=== PATIENT | female | born 1970 | race Caucasian/White ===

== ENCOUNTER 2018-05-21 15:15 | Outpatient (CLI) | payer BC, SELFPAY ==
[2018-05-21 15:38] LABS: Absolute Basophil Count 0.02 k/cumm (0.0-0.2); Absolute Eosinophil Count 0.08 k/cumm (0.0-0.7); Absolute Lymphocyte Count 2.17 k/cumm (1.2-3.4); Absolute Monocyte Count 0.42 k/cumm (0.11-0.7); Absolute Neutrophil Count 2.99 k/cumm (1.2-6.7); Basophils % 0.4; Eosinophils % 1.4; HCT 44.5 % (36.0-46.0); HGB 15.3 g/dL (12.0-15.5); Lymphocytes % 38.2; Mean Corp. HGB Concentration 34.4 g/dL (32.0-36.0); Mean Corpuscular Hemoglobin 30.9 pg (27.0-33.0); Mean Corpuscular Volume 89.9 fL (80-95); Mean Platelet Volume 9.4 fL (8.0-11.0); Monocytes % 7.4; Neutrophils % 52.6; Platelet Count 253 x1000/uL (130-400); RBC 4.95 m/cumm (4.00-5.20); RBC Distribution Width 12.4 % (11.7-14.6); White Blood Cell Count 5.68 k/cumm (4.4-10.8)
[2018-05-21 16:31] LABS: ALT 36 U/L (12-78); AST 18 U/L (15-37); Alkaline Phosphatase 72 U/L (46-116); Anion Gap 8.6 mmol/L (3-11); BUN 12 mg/dL (7-18); Bilirubin, Total 0.3 mg/dL (0.2-1.0); CO2 30.4 mmol/L (21.0-32.0); CREATININE 0.85 mg/dL (0.55-1.02); Calcium 9.3 mg/dL (8.5-10.1); Chloride 101 mmol/L (98-107); Glucose 92 mg/dL (70-100); Lipase 306 U/L (73-393); Potassium 4.4 mmol/L (3.5-5.1); Sodium 140 mmol/L (136-145); Total Protein 7.6 g/dL (6.4-8.2)
== END 2018-05-21 15:35 ==
PROVIDERS: PCP Nurse Practitioner Family; Visit Provider Nurse Practitioner Family
DX: R10.9 Unspecified abdominal pain (principal)
CPT/HCPCS: 36415; 80053; 83690; 85025

== ENCOUNTER 2019-03-10 12:25 | Outpatient (REF) | payer BC, SELFPAY ==
[2019-03-10 12:41] LABS: Abs Immature Grans 0.01 k/cumm (0.0-0.09); Absolute Basophil Count 0.03 k/cumm (0.0-0.2); Absolute Eosinophil Count 0.11 k/cumm (0.0-0.7); Absolute Lymphocyte Count 1.87 k/cumm (1.2-3.4); Absolute Monocyte Count 0.38 k/cumm (0.11-0.7); Absolute Neutrophil Count 2.44 k/cumm (1.2-6.7); Basophils % 0.6; Eosinophils % 2.3; HCT 43.3 % (36.0-46.0); HGB 14.6 g/dL (12.0-15.5); Immature Grans % 0.2; Lymphocytes % 38.6; Mean Corp. HGB Concentration 33.7 g/dL (32.0-36.0); Mean Corpuscular Hemoglobin 30.4 pg (27.0-33.0); Mean Corpuscular Volume 90.2 fL (80-95); Mean Platelet Volume 9.5 fL (8.0-11.0); Monocytes % 7.9; Neutrophils % 50.4; Platelet Count 263 x1000/uL (130-400); RBC Distribution Width 12.7 % (11.7-14.6); White Blood Cell Count 4.84 k/cumm (4.4-10.8)
[2019-03-10 12:55] LABS: Mono Screening Negative (Negative)
== END 2019-03-10 12:45 ==
LOC: LBN 12:25
PROVIDERS: PCP Nurse Practitioner Family; Visit Provider Family Medicine
DX: J02.9 Acute pharyngitis, unspecified (principal); R53.83 Other fatigue
CPT/HCPCS: 85025; 86308; 87070

== ENCOUNTER 2020-02-05 04:34 | Outpatient (CLI) | payer BC, SELFPAY ==
--- NOTE | 2020-02-05 08:47 | DI.MAMMO_ITS ---
EXAM: MAMMO SCREENING CLINICAL HISTORY: screening,Z12.39 TECHNIQUE: Mammograms were interpreted according to the usual protocol including computer analysis w [email or web address] CAD system, tomosynthesis and C-view imaging. COMPARISON: FINDINGS: The breasts are heterogeneously dense. No dominant mass or clumped microcalcification is identified in either breast. There is a focal area of increased radiodensity in the central portion of the righ t breast, additional evaluation of this area with MLO spot compression view recommended to exclude a mass. No other significant findings. No prior studies available for comparison. IMPRESSION: Additional mammographic views of the right breast requested as described above, to include an MLO spo t compression view. Breast ultrasound may be indicated as well depending on the results of the addit ional mammographic views. BI-RADS Category 0 - Assessment Incomplete: Need additional imaging evaluation Breast Density - Category C - Heterogeneously dense
== END 2020-02-05 04:54 ==
PROVIDERS: PCP Nurse Practitioner Adult Health; Visit Provider Nurse Practitioner Adult Health
DX: Z12.31 Encounter for screening mammogram for malignant neoplasm of breast (principal)
CPT/HCPCS: 77063; 77067

== ENCOUNTER 2020-02-10 00:54 | Outpatient (CLI) | payer BC, SELFPAY ==
--- NOTE | 2020-02-10 | DI.MAMMO_ITS ---
EXAM: MG MAMMO SCREEN CALL BACK UNI CLINICAL HISTORY: F/U MAMMO, FOCAL INCREASED RADIODENSITY RT TECHNIQUE: Mammograms were interpreted according to the usual protocol including computer analysis w [employer] CAD system, tomosynthesis and C-view imaging. COMPARISON: FINDINGS: Additional mammographic views of the right breast and right breast ultrasound are interpreted in conj unction. These examinations were obtained to evaluate questionable area focal asymmetric density raegan tral portion right breast seen recent. Additional mammographic views fail to show a discrete mass. Breast ultrasound shows no evidence of mass or cyst. IMPRESSION: no specific evidence of malignancy at this time. Follow-up unilateral right breast mammogram recomm ended in 6 months. BI-RADS Category 3 - 6 month - Probably Benign Finding: Recommend follow-up mammography in 6 months Breast Density - Category C - Heterogeneously dense
== END 2020-02-10 01:14 ==
PROVIDERS: PCP Nurse Practitioner Adult Health; Visit Provider Nurse Practitioner Adult Health
DX: R92.8 Other abnormal and inconclusive findings on diagnostic imaging of breast (principal); R92.2 Inconclusive mammogram
CPT/HCPCS: 76642; 77063; 77067

== ENCOUNTER 2020-04-18 09:11 | Outpatient (CLI) | payer BC, SELFPAY ==
[2020-04-20 17:29] LABS: COVID-19 RT-PCR Result NEGATIVE (Negative)
== END 2020-04-18 09:31 ==
PROVIDERS: PCP Nurse Practitioner Adult Health; Visit Provider Nurse Practitioner Adult Health
DX: Z20.828 Contact with and (suspected) exposure to other viral communicable diseases (principal)
CPT/HCPCS: U0003

== ENCOUNTER 2020-09-19 02:24 | Outpatient (CLI) | payer BC, SELFPAY ==
--- NOTE | 2020-09-19 | DI.MAMMO_ITS ---
Exam(s) MG MAMMO DIAGNOSTIC UNI EXAM: MG MAMMO DIAGNOSTIC UNI CLINICAL HISTORY: DIAGNOSTIC, F/U ABNL MAMMO, 6 MONTH FOLLOW UP,R92.8. TECHNIQUE: Unilateral spot mammographic images were obtained with 3D Tomosynthesistechnique and util izing computer aided detection (CAD). COMPARISON: Prior baseline mammogram February 2020. Also reviewed ultrasound of the right breast per formed February 2020. FINDINGS: Fibroglandular tissue of the right breast is moderately dense, this decreasing the sensitivity mammog federico for finding in underlying lesions There are no ominous masses nor malignant-appearing microcalcification groups in the right breast. N o architectural distortion or skin thickening-traction. IMPRESSION: No radiographic evidence of malignancy in the right breast. Appropriate follow-up is to keep this patient yearly mammogram schedule, this implying the next [facility] mammogram would be in February 2021, with earlier imaging if a self detected breast changes noted .. The patient was informed of the findings and follow-up recommendations prior to leaving the [facility] today. BI-RADS Category 2 - Benign Findings Breast Density - Category C - Heterogeneously dense Breast density Category C or D implies that the patient has dense breast tissue. Dense breast tissue can make it harder to find cancer on a mammogram. Dense breast tissue is also associated with an incr eased risk of breast cancer. This information about the result of the mammogram report was provided to the patient to raise their awareness. Use this report when you speak with the patient about their risks for breast cancer, which includes their family history. At that time, you may recommend additional screening tests (Ultrasoun d or MRI) as these tests may add significant information. A negative radiographic report should not delay biopsy if a dominant or clinically suspicious mass is present. Up to ten percent of cancers are not identified on mammography. A negative report may reinforce clinical impression. Adenosis and dense breasts may obscure an underlying neoplasm. False positive reports average 6 to 10%. Patient will receive a letter notifying them of these results.
== END 2020-09-19 02:44 ==
PROVIDERS: PCP Nurse Practitioner Adult Health; Visit Provider Nurse Practitioner Adult Health
DX: Z12.31 Encounter for screening mammogram for malignant neoplasm of breast (principal); R92.8 Other abnormal and inconclusive findings on diagnostic imaging of breast; N64.59 Other signs and symptoms in breast
CPT/HCPCS: 77061; 77065; G0279

== ENCOUNTER 2021-09-19 02:03 | Outpatient (CLI) | payer BC, SELFPAY ==
[2021-09-19 08:52] LABS: Abs Immature Grans 0.02 10^3/uL (0.0-0.06); Absolute Basophil Count 0.02 10^3/uL (0.0-0.2); Absolute Eosinophil Count 0.16 10^3/uL (0.0-0.7); Absolute Lymphocyte Count 1.86 10^3/uL (1.2-3.4); Absolute Monocyte Count 0.32 10^3/uL (0.1-0.8); Basophils % 0.5; Eosinophils % 3.7; HCT 42.1 % (36.0-46.0); HGB 14.2 g/dL (11.2-15.7); Immature Grans % 0.5; MCHC 33.7 % (32.0-36.0); MCV 89 fL (80-95); MPV 9.2 fL (8.0-11.0); Monocytes % 7.4; Neutrophils % 44.9; Platelet Count 293 10^3/uL (130-400); RBC 4.73 10^6/uL (3.93-5.22); RDW 12.2 % (11.7-14.6); RDW-SD 40.3 fL; WBC 4.33 10^3/uL (4.4-10.8)
[2021-09-19 08:53] LABS: Absolute Neutrophil Count 1.94 10^3/uL (1.2-6.7)
[2021-09-19 10:01] LABS: ALT 42 U/L (14-59); AST 24 U/L (15-37); Albumin 3.9 g/dL (3.4-5.0); Alkaline Phosphatase 107 U/L (46-116); Anion Gap 9.6 mmol/L (3-11); BUN 10 mg/dL (7-18); Bilirubin, Total 0.3 mg/dL (0.2-1.0); CO2 27.4 mmol/L (21.0-32.0); CREATININE 0.9 mg/dL (0.55-1.02); Calcium 8.9 mg/dL (8.5-10.1); Calculated LDL 190 mg/dL (<100); Chloride 104 mmol/L (98-107); Cholesterol 284 mg/dL (<200); Folate 11.6 ng/mL (8.6-20.0); Glucose 100 mg/dL (74-106); HDL Cholesterol 57 mg/dL (40-60); Potassium 4.5 mmol/L (3.5-5.1); Sodium 141 mmol/L (136-145); TSH (W/Ref FT4) 1.06 uIU/mL (0.36-3.74); Total Protein 7.6 g/dL (6.4-8.2); Triglyceride 189 mg/dL (<150); Vitamin B12 269 pg/mL (193-986)
== END 2021-09-19 02:04 | disposition home or self-care (01) ==
LOC: LBO 02:03
PROVIDERS: PCP Nurse Practitioner Adult Health; Referring Provider Nurse Practitioner Adult Health; Visit Provider Nurse Practitioner Adult Health
DX: R00.2 Palpitations (principal); R63.5 Abnormal weight gain; F41.8 Other specified anxiety disorders; Z13.1 Encounter for screening for diabetes mellitus; Z13.220 Encounter for screening for lipoid disorders
CPT/HCPCS: 36415; 80053; 80061; 82607; 82746; 84443; 85025

== ENCOUNTER → 2021-10-30 02:27 | Outpatient (CLI) | payer BC, SELFPAY ==
--- NOTE | 2021-10-30 07:45 | DI.MAMMO_ITS ---
Exam(s) MAMMO SCREENING EXAM: MAMMO SCREENING CLINICAL HISTORY: screening,Z12.39. TECHNIQUE: Bilateral full field digital CC and MLO mammographic images were obtained with 3D tomosyn thesis and utilizing computer aided detection (CAD). COMPARISON: Prior mammograms were reviewed, the most recent being February 2020 and September 2020.. FINDINGS: Fibroglandular tissue pattern is again noted be moderately dense, this somewhat decreasing the sensit ivity mammogram for finding hidden underlying lesions. There are no new obvious spiculated masses nor malignant appearing microcalcification groups. There is no significant architectural distortion nor skin thickening-retraction. IMPRESSION: No radiographic evidence of malignancy. Moderately dense fibroglandular tissue BI-RADS Category 1 - Negative Breast Density - Category C - Heterogeneously dense Breast density Category C or D implies that the patient has dense breast tissue. Dense breast tissue can make it harder to find cancer on a mammogram. Dense breast tissue is also associated with an incr eased risk of breast cancer. This information about the result of the mammogram report was provided to the patient to raise their awareness. Use this report when you speak with the patient about their risks for breast cancer, which includes their family history. At that time, you may recommend additional screening tests (Ultrasoun d or MRI) as these tests may add significant information. A negative radiographic report should not delay biopsy if a dominant or clinically suspicious mass is present. Up to ten percent of cancers are not identified on mammography. A negative report may reinforce clinical impression. Adenosis and dense breasts may obscure an underlying neoplasm. False positive reports average 6 to 10%. Patient will receive a letter notifying them of these results.
== END ==
PROVIDERS: PCP Nurse Practitioner Adult Health; Visit Provider Nurse Practitioner Adult Health
DX: Z12.31 Encounter for screening mammogram for malignant neoplasm of breast (principal)
CPT/HCPCS: 77063; 77067

== ENCOUNTER 2021-12-21 04:18 | Outpatient (CLI) | payer BC, SELFPAY ==
--- NOTE | 2021-12-21 16:00 | NS.NUTBLAN_ITS ---
Larisa was referred for weight and lipid mangement education. 50 yo female 5'1 160 lbs BMI: 26. Has gained 40 lbs in last 7 years- attributes this to increase in stress and sedentary job. 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 Diet Recall: cereal with banana for B, Lunch: MacnCheese, D: kyrgyz food. Snacks: Crackers. Drinks 1 Pepsi daily Exercise: None Labs: 12/01/21: Chol: 284, LDL: 190, HDL: 57, Tri. Fasting BS: 100 mg/dl. Strong Fam hx of Dm2 Session today focused on how to follow a lower carb diet that focuses on lean protein, healthy fats, non starchy vegetables and complex carbs. Provided meal plans and web sites for reference. Encouraged tracking on food diary matteo such as [employer] or Carbs & Cals. Recommend walking 1 mile daily. Barriers for behavior change is work and school schedule. Has very little down time. Hoping for more time to herself later in year. Goal: 10% weight loss in next 90 days. 16 lbs weight loss most likely will improvie lipid and glycemic profile. No follow up scheduled at this time.
== END 2021-12-21 04:19 | disposition home or self-care (01) ==
LOC: DS 04:18
PROVIDERS: PCP Nurse Practitioner Adult Health; Visit Provider Dietitian, Registered
DX: E66.3 Overweight (principal); E78.5 Hyperlipidemia, unspecified; Z68.26 Body mass index [BMI] 26.0-26.9, adult; Z71.3 Dietary counseling and surveillance
CPT/HCPCS: 97802

== ENCOUNTER 2022-02-23 01:29 | Outpatient (CLI) | payer BC, SELFPAY ==
--- OUTSIDE RECORDS SUMMARY | 2022-02-23 01:36 | XMS_ITS | Encounter Summary ---
:1970 Author Organization [facility] [address] Care Team Providers Name Role Phone Hanny Coates APRN Primary Care Provider Reason for Referral Consultation (Routine) - Authorized Specialty Diagnoses / Procedures Referred By Contact Refer red To Contact Gastroenterology Diagnoses Family hx of colorectal cancer Hanny Coates APRN [facility]oscopy [address] [place], [place] [id number] [place] [id number] Referral ID Status Reason Start Expiration Visits Visits Date Date Requested Authorized [id number] Authorized Consult, 09/21/2021 09/21/2022 6 6 Test & Treat PCP Updated and/or Approved Encounter Details Date Type Department Care Team Description 09/21/2021 Transcribe Orders eDH Incoming Family Jaxon hx of Referrals RICKIE Gamino colorectal cancer [phone] [place], [place] [id number] Social History Tobacco Use Types Packs/Day Years Used Date Never Assessed Sex Assigned at Date Recorded Not on file documented as of this encounter Plan of Treatment Scheduled Referrals Name Type Priority Associated Order Schedule Diagnoses Referral to Outpatient Routine Family hx of Ordered: Gastroenterology Referral colorectal cancer 2021 documented as of this encounter Visit Diagnoses Diagnosis Family hx of colorectal cancer Family history of malignant neoplasm of gastrointestinal tract documented in this encounter Care Teams Utilization Specialist Relationship Specialty Start Date End Date Hanny Coates APRN PCP - General Geriatric Medicine 02/15/[address] [place] [address] [place] [address] documented as of this encounter
--- OUTSIDE RECORDS SUMMARY | 2022-02-23 01:36 | XMS_ITS | Encounter Summary ---
:1970 Author Organization [facility] [place] [address] Care Team Providers Name Role Phone Hanny Coates APRN Primary Care Provider Encounter Details Date Type Department Care Team Description 02/17/2020 External Results [place] [facility] [place], [place] [address] Social History Tobacco Use Types Packs/Day Years Used Date Never Assessed Sex Assigned at Date Recorded Not on file documented as of this encounter Plan of Treatment Not on filedocumented as of this encounter Procedures Procedure Name Priority Date/Time Associated Diagnosis Comme nts MAMMOGRAM SCAN Routine 08/11/2007 Results for t his procedure are in the resu lts section. documented in this encounter Results Scan Doc: Mammogram (08/11/2007) Anatomical Region Laterality Modality Other Narrative This result has an attachment that is no t available. Scanning Provider MEDIA MGR SCAN EXT ORDR/RSLT documented in this encounter Visit Diagnoses Not on filedocumented in this encounter Care Teams Fitter Mechanic Relationship Specialty Start Date End Date Hanny Coates APRN PCP - General Geriatric Medicine 02/15/20 [facility] [place] [address] documented as of this encounter
--- OUTSIDE RECORDS SUMMARY | 2022-02-23 01:36 | XMS_ITS | Encounter Summary ---
:1970 Author Organization [facility] [place] [address] Care Team Providers Name Role Phone Unknown Primary Care Provider Unavailable Encounter Details Date Type Department Care Team Description 02/10/2020 Ancillary Procedure Radiology Library at Kerrie Coates [facility] [place] NUCLEAR MEDICINE TECHNICIAN [facility] [address] [place] [phone] (Wo rk) Social History Tobacco Use Types Packs/Day Years Used Date Never Assessed Sex Assigned at Date Recorded Not on file documented as of this encounter Plan of Treatment Not on filedocumented as of this encounter Procedures Procedure Name Priority Date/Time Associated Diagnosis Comme nts FILM Routine 02/10/2020 12:00 AM Results for this LIBRARY-STORAGE EDT procedure ar e in ONLY US BREAST the results section. documented in this encounter Results Film Library Storage Only US Breast (02/10/2020 12:00 AM EDT) Specimen (Source) Anatomical Location Collection Method / Collectio n Time Received Time / Laterality Volume Narrative TORIN CODY - 02/17/2020 4:10 PM EDT This exam is auto-finalizing. It's purpo se is for storage only. Hanny Coates NUCLEAR MEDICINE TECHNICIAN IMG FILM LIBRARY ORDERABLES Performing Organization Address City/State/ZIP Code Phon e Number RAD [place], [place] documented in this encounter Visit Diagnoses Not on filedocumented in this encounter Care Teams Game Developer Relationship Specialty Start Date End Date Unknown PCP - General 02/13/17 02/14/20 None documented as of this encounter
--- OUTSIDE RECORDS SUMMARY | 2022-02-23 01:36 | XMS_ITS | Encounter Summary ---
:1970 Author Organization [facility] Address [address] [place] [address] Care Team Providers Name Role Phone Unavailable Primary Care Provider Unavailable Encounter Details Date Type Department Care Team Description 09/07/[address] [facility] [place] Unknown, Provider, [facility] [address] [facility] [phone] [place] [address] (Work) [phone] Social History Tobacco Use Types Packs/Day Years Used Date Never Assessed Sex Assigned at Date Recorded Not on file documented as of this encounter Discharge Disposition Disposition Code Departure Means Destination Home or Self [facility] documented in this encounter Plan of Treatment Not on filedocumented as of this encounter Visit Diagnoses Not on filedocumented in this encounter
--- OUTSIDE RECORDS SUMMARY | 2022-02-23 01:36 | XMS_ITS | Encounter Summary ---
:1970 Author Organization [facility] Address [address] [place] [address] Care Team Providers Name Role Phone Cheli Andrews APRN Primary Care Provider Encounter Details Date Type Department Care Team Description 05/17/2015 Hospital Encounter [facility] Unknown, Pro Blanca dexter MD [address] [facility] [phone] [place] [address] (Work) [phone] Social History Tobacco Use Types Packs/Day Years Used Date Never Assessed Sex Assigned at Date Recorded Not on file documented as of this encounter Discharge Disposition Disposition Code Departure Means Destination Home or Self Custodial documented in this encounter Plan of Treatment Not on filedocumented as of this encounter Visit Diagnoses Not on filedocumented in this encounter Care Teams Kai [place] Relationship Specialty Start Date End Date Cheli Andrews APRN PCP - General 09/28/14 11/01/15 [address] [address] documented as of this encounter
--- OUTSIDE RECORDS SUMMARY | 2022-02-23 01:36 | XMS_ITS | Encounter Summary ---
:1970 Author Organization [facility] Address [address] [place] [address] Care Team Providers Name Role Phone Ginny Palencia CORONER TECHNICIAN Primary Care Provider Encounter Details Date Type Department Care Team Description 04/18/2020 Lab Requisition [facility] Outr Resulting Lab, Pathology & Laboratory Provider [facility] [address] [place] [address] Social History Tobacco Use Types Packs/Day Years Used Date Never Assessed Sex Assigned at Date Recorded Not on file documented as of this encounter Plan of Treatment Not on filedocumented as of this encounter Procedures Procedure Name Priority Date/Time Associated Comments Diagnosis DO NOT ORDER Today 04/18/2020 12:53 Results for this STANDALONE - BROAD EST procedure are in COVID TEST the results section. COVID-19 TESTING Routine 04/18/2020 12:53 Results for this EST procedure are i n the results section. documented in this encounter Results DO NOT ORDER STANDALONE - BROAD COVID TEST (04/18/2020 12:53 EST) COVID-19 rt-PCR NEGATIVE Negative [facility] Result Comment: LABORATORY 2019-novel Coronavirus (2019 -nCoV) not detected by the qRT-PCR assay. Consider testing for other respiratory viruses or re-collecting for 2019-nCoV testing. Note: Optimum timing for peak viral levels du ring infections caused by 20 19-nCoV have not been determined. Collection of multiple specimens from the same patient may be necessary to detect the virus. Limitations Positive results are indicat sherwin of active infection with SARS-CoV-2 but do not rule out bacterial infection or co-infection with other viruses. The agent detected may not be the definite cause of diseas e. In addition, detection of viral RNA may not indicate the presence of infectious virus or that SARS-CoV-2 is the causative agent for clinical symptoms. Negative results do not prec lude SARS-CoV-2 infection and should not be used as the sole basis for patient management decisions. Negative results must be combined with clinical observations, patient his tory, and epidemiological in formation. False negative results may also occur if amplification inhibitors are present in the specimen or if inadequate numbers of organisms are present in the specimen. Op timum specimen types and georgie ing for peak viral levels during infections caused by SARS-CoV-2 have not been fully determined. Collection of multiple specimens (types and time points) from the same patient may be necessary to detect the virus. The test was validated for u se with upper respiratory specimens obtained via nasopharyngeal or oropharyngeal swabs in VTM, UTM, M4, M5, M6, saline, and MTM media. The performance of this test has not be en established for other spe cimens. Specimens collected using other FDA recommended Specimen Collection Materials listed in the FDA COVID-19 [employer] communication (July 30, 2019) are pr ocessed with the caveat that they were not all validated for use with this test and the result must be interpreted in this context. Furthermore, a false negative results may occur if a specimen is improperly collected, transported or handled. If the virus mutates in the RT-PCR target region, SARS-CoV-2 may not be detected or may be detected less predictably. Inhibitors or other types of interference may produce a false negative result. An interference study evaluating the effect of common cold medications was not performed. This test is not FDA-cleared but its performance characteristics were established by our CLIA-certified, CAP-accredited, high complexity laboratory in accordance with CLIA regulations, College of [employer] an [employer] (CAP) guidel devante (Jul 23, 2019), and FDA guidance (Jul 04, 2019). This test is only for use un gage the Food and Drug Administration's Emergency Use Authorization. Specimen Swab - Entire nasopharynx (body structur e) Performing Organization Address City/State/ZIP Code Phon e Number [facility] [place] [place] COVID-19 TESTING (04/18/2020 12:53 EST) COVID-19 rt-PCR NEGATIVE Negative [facility] Result Comment: LABORATORY 2019-novel Coronavirus (2019 -nCoV) not detected by the qRT-PCR assay. Consider testing for other respiratory viruses or re-collecting for 2019-nCoV testing. Note: Optimum timing for peak viral levels du ring infections caused by 20 -nCoV have not been determined. Collection of multiple specimens from the same patient may be necessary to detect the virus. Limitations Positive results are indicat sherwin of active infection with SARS-CoV-2 but do not rule out bacterial infection or co-infection with other viruses. The agent detected may not be the definite cause of diseas e. In addition, detection of viral RNA may not indicate the presence of infectious virus or that SARS-CoV-2 is the causative agent for clinical symptoms. Negative results do not prec lude SARS-CoV-2 infection and should not be used as the sole basis for patient management decisions. Negative results must be combined with clinical observations, patient his tory, and epidemiological in formation. False negative results may also occur if amplification inhibitors are present in the specimen or if inadequate numbers of organisms are present in the specimen. Op timum specimen types and georgie ing for peak viral levels during infections caused by SARS-CoV-2 have not been fully determined. Collection of multiple specimens (types and time points) from the same patient may be necessary to detect the virus. The test was validated for u with upper respiratory specimens obtained via nasopharyngeal or oropharyngeal swabs in VTM, UTM, M4, M5, M6, saline, and MTM media. The performance of this test has not be en established for other spe cimens. Specimens collected using other FDA recommended Specimen Collection Materials listed in the FDA COVID-19 [employer] communication (July 30, 2019) are pr ocessed with the caveat that they were not all validated for use with this test and the result must be interpreted in this context. Furthermore, a false negative results may occur if a specimen is improperly collected, transported or handled. If the virus mutates in the RT-PCR target region, SARS-CoV-2 may not be detected or may be detected less predictably. Inhibitors or other types of interference may produce a false negative result. An interference study evaluating the effect of common cold medications was not performed. This test is not FDA-cleared but its performance characteristics were established by our CLIA-certified, CAP-accredited, high complexity laboratory in accordance with CLIA regulations, [employer] of [employer] an [employer]ologists (CAP) guidel devante (Jul 23, 2019), and FDA guidance (Jul 04, 2019). This test is only for use un gage the Food and Drug Administration's Emergency Use Authorization. Performing Lab [facility] LABORATORY SERVICES Specimen Swab Performing Organization Address City/State/ZIP Code Phon e Number [facility] [address] [place] [address] SERVICES [facility] [place], [place] documented in this encounter Visit Diagnoses Not on filedocumented in this encounter Care Teams Orchard Worker Relationship Specialty Start Date End Date Ginny Palencia, MCKENNA PCP - General 11/02/15 [address] [place] [id number] documented as of this encounter
--- OUTSIDE RECORDS SUMMARY | 2022-02-23 01:36 | XMS_ITS | Encounter Summary ---
:1970 Author Organization [facility] [place] [address] Care Team Providers Name Role Phone Hanny Coates RICKIE Primary Care Provider Encounter Details Date Type Department Care Team Description 02/18/2020 Ancillary Procedure Radiology Library at Kerrie Coates zach, Breast density [id number] [place] [address] [place], [place] [id number] Social History Tobacco Use Types Packs/Day Years Used Date Never Assessed Sex Assigned at Date Recorded Not on file documented as of this encounter Plan of Treatment Not on filedocumented as of this encounter Procedures Procedure Name Priority Date/Time Associated Diagnosis Comme nts REQUEST FOR 2ND Routine 02/18/2020 8:35 AM Breast density Resu lts for this READ MAMMO EDT procedure are i n the results section. documented in this encounter Results Request for 2nd read Mammo (02/18/2020 8:35 AM EDT) Anatomical Region Laterality Modality SO Specimen (Source) Anatomical Location Collection Method / Collectio n Time Received Time / Laterality Volume Impressions 02/18/2020 9:08 AM EDT No evidence of malignancy. The previously noted right breast density is consistent with benign breast fibrogland ular tissue. BI-RADS Category 1: Negative RECOMMENDATION: Routine screening. Please note: The interpretation of the [facility] Breast Imaging Radiologist subspecialist may differ fro m the original radiologists interpretation. This is usually not due to a deficiency of the original interpreting radiologist, rather due to the greater skill level afforded by sub-specialization in the field and/or r easonable variations in interpretations. If you have a concern regarding the D- interpretation you may contact the [facility] Breast Crew Dispatcher Office at . * ??Regular screening mammograms startin g between age 40 and 50 reduces the risk of from breast cancer. * ??All screening tests have both risks and benefits. These risks and benefits should be assessed for each individual p atient through discussion with their provider to determine their preferred br east cancer screening schedule. * ??Women should report any breast ott es to a health care provider right away. * ??Some women, because of their family history, a genetic tendency, or other factors, should be screened with annual breast MRI as well as with mammograms. (The number of women who fall into this category is very small). Patients and health care providers should discuss the history of each patient to decide if earlier screening and/or breast MRI are appropriate. * ??Screening should continue as long as a woman is in good health and is expected to live 10 years or longer. * ??Screening mammography may not detect 10-15% of breast cancers. I have personally reviewed the image(s) and the resident's interpretation and agree with the findings, Yesika vega MD at 02/18/2020 9:08 AM Thank you for letting us participate in the care of this patient. For questions regarding this report, please contact e number below. ? Electronically signed by: Yesika ballesteros MD, [facility] ([phone]), at 02/18/2020 9:08 AM Narrative 02/18/2020 9:08 AM EDT INTERPRETATION OF OUTSIDE BREAST IMAGING I have been asked to consult on this pat ient by Hanny Coates APRN because he/she believes a review of this study m ay change or alter the care of this patient. STUDIES FROM: [facility] DATES: 02/18/2020, 02/10/2020, and 020. TYPE OF EXAM: Screening mammogram, right breast diagnostic mammogram, and right breast ultrasound ultrasound. CLINICAL HISTORY: Right breast density; CAT 3; ? Imaging, ? bx - [place] [facility] What Modality is the exam? Mammography; Body Part (please add comments as necessary): cristhian st; Sending Institution [facility]; Date of exam [id number]; I believe a reinterpretat ion of this exam may alter care of Patient. Yes. ?? COMPARISONS: Mammograms dated 02/05/2020 and 08/11/2007. TECHNIQUE: CC and MLO views were obtaine d of the bilateral breast(s). Computer aided detection was used. 3D tomosynthes is images were obtained in addition to 2D images. Compression MLO views of the right breast. Targeted ultrasound of the right breast. ?? FINDINGS: 02/18/2020 diagnostic right breast mammo gram: No mass, suspicious calcifications, or architectural distort ion. 02/10/2020 targeted right breast ultrasou nd: Benign dense breast fibroglandular tissue. 02/05/2020 screening mammogram: Right breast: ??No mass, suspicious calc ifications, or architectural distortion. Left breast: ??No mass, suspicious calci fications, or architectural distortion. Procedure Note Yesika Faust MD - 02/18/2020Form atting of this note might be different from the original. INTERPRETATION OF OUTSIDE BREAST IMAGING I have been asked to consult on this pat ient by Hanny Coates APRN because he/she believes a review of this study m ay change or alter the care of this patient. STUDIES FROM: [facility] DATES: 02/18/2020, 02/10/2020, and 020. TYPE OF EXAM: Screening mammogram, right breast diagnostic mammogram, and right breast ultrasound ultrasound. CLINICAL HISTORY: Right breast density; CAT 3; ? Imaging, ? bx - patient would like [place] [facility]; What Modality is the exam? Mammography; Body Part (please add comments as necessary): cristhian st; Sending Institution [facility]; Date of exam [id number]; I believe a reinterpretat ion of this exam may alter care of Patient. Yes. COMPARISONS: Mammograms dated 02/05/2020 and 08/11/2007. TECHNIQUE: CC and MLO views were obtaine d of the bilateral breast(s). Computer aided detection was used. 3D tomosynthes is images were obtained in addition to 2D images. Compression MLO views of the right breast. Targeted ultrasound of the right breast. FINDINGS: 02/18/2020 diagnostic right breast mammo gram: No mass, suspicious calcifications, or architectural distort ion. 02/10/2020 targeted right breast ultrasou nd: Benign dense breast fibroglandular tissue. 02/05/2020 screening mammogram: Right breast: No mass, suspicious calcif ications, or architectural distortion. Left breast: No mass, suspicious calcifi cations, or architectural distortion. IMPRESSION No evidence of malignancy. The previousl y noted right breast density is consistent with benign breast fibrogland ular tissue. BI-RADS Category 1: Negative RECOMMENDATION: Routine screening. Please note: The interpretation of the [facility] Breast Imaging Radiologist subspecialist may differ fro m the original radiologists interpretation. This is usually not due to a deficiency of the original interpreting radiologist, rather due to the greater skill level afforded by sub-specialization in the field and/or r easonable variations in interpretations. If you have a concern regarding the D- interpretation you may contact the [facility] Breast Crew Dispatcher Office at . * Regular screening mammograms starting between age 40 and 50 reduces the risk of from breast cancer. * All screening tests have both risks an d benefits. These risks and benefits should be assessed for each individual p atient through discussion with their provider to determine their preferred [facility] cancer screening schedule. * Women should report any breast changes to a health care provider right away. * Some women, because of their family hi story, a genetic tendency, or other factors, should be screened with annual breast MRI as well as with mammograms. (The number of women who fall into this category is very small). Patients and health care providers should discuss the history of each patient to decide if earlier screening and/or breast MRI are appropriate. * Screening should continue as long as a woman is in good health and is expected to live 10 years or longer. * Screening mammography may not detect 1 0-15% of breast cancers. I have personally reviewed the image(s) and the resident's interpretation and agree with the findings, Yesika Zuurbie r, MD at 02/18/2020 9:08 AM Thank you for letting us participate in the care of this patient. For questions regarding this report, please contact e number below. Electronically signed by: Yesika ballesteros MD, [facility] ([phone]), at 02/18/2020 9:08 AM Hanny Coates APRN IMG OUTSIDE INTERPRETATION O RDERABLES documented in this encounter Visit Diagnoses Diagnosis Breast density Other sign and symptom in breast documented in this encounter Care Teams Ultrasonic Hand Solderer Relationship Specialty Start Date End Date Hanny Coates APRN PCP - General Geriatric Medicine 02/15/20 [address] [place] [address] documented as of this encounter
--- OUTSIDE RECORDS SUMMARY | 2022-02-23 01:36 | XMS_ITS | Encounter Summary ---
:1970 Author Organization [facility] [place] [address] Care Team Providers Name Role Phone Unavailable Primary Care Provider Unavailable Encounter Details Date Type Department Care Team Description 08/11/2007 Ancillary Procedure Radiology Library at Kerrie Coates [facility] POLYGRAPH OPERATOR [facility] [address] [place] [phone] (Wo rk) Social History Tobacco Use Types Packs/Day Years Used Date Never Assessed Sex Assigned at Date Recorded Not on file documented as of this encounter Plan of Treatment Not on filedocumented as of this encounter Procedures Procedure Name Priority Date/Time Associated Diagnosis Comme nts FILM LIBRARY Routine 08/11/2007 12:00 AM Results for this STORAGE ONLY MAMMO EDT procedure are in the results section. documented in this encounter Results Film Library- Storage Only Mammo (08/11/2007 12:00 AM EDT) Specimen (Source) Anatomical Location Collection Method / Collectio n Time Received Time / Laterality Volume Narrative ESCOBAR - 02/17/2020 4:15 PM EDT This exam is auto-finalizing. It's purpo se is for storage only. Hanny Coates POLYGRAPH OPERATOR IMG FILM LIBRARY ORDERABLES Performing Organization Address City/State/ZIP Code Phon e Number [place], [place] documented in this encounter Visit Diagnoses Not on filedocumented in this encounter
--- OUTSIDE RECORDS SUMMARY | 2022-02-23 01:36 | XMS_ITS | Encounter Summary ---
:1970 Author Organization [facility] [place] [address] Care Team Providers Name Role Phone Unknown Primary Care Provider Unavailable Encounter Details Date Type Department Care Team Description 02/10/2020 Ancillary Procedure Radiology Library at Kerrie Coates [facility] BOSOM PRESSER [facility] [address] [place] [phone] (Wo rk) Social History Tobacco Use Types Packs/Day Years Used Date Never Assessed Sex Assigned at Date Recorded Not on file documented as of this encounter Plan of Treatment Not on filedocumented as of this encounter Procedures Procedure Name Priority Date/Time Associated Diagnosis Comme nts FILM LIBRARY Routine 02/10/2020 12:05 AM Results for this STORAGE ONLY MAMMO EDT procedure are in the results section. documented in this encounter Results Film Library- Storage Only Mammo (02/10/2020 12:05 AM EDT) Specimen (Source) Anatomical Location Collection Method / Collectio n Time Received Time / Laterality Volume Narrative ESCOBAR - 02/17/2020 4:13 PM EDT This exam is auto-finalizing. It's purpo se is for storage only. Hanny Coates BOSOM PRESSER IMG FILM LIBRARY ORDERABLES Performing Organization Address City/State/ZIP Code Phon e Number [place], [place] documented in this encounter Visit Diagnoses Not on filedocumented in this encounter Care Teams Rice Farmer Relationship Specialty Start Date End Date Unknown PCP - General 02/13/17 02/14/20 None documented as of this encounter
--- OUTSIDE RECORDS SUMMARY | 2022-02-23 01:36 | XMS_ITS | Encounter Summary ---
:1970 Author Organization [facility] [place] [address] Care Team Providers Name Role Phone Unknown Primary Care Provider Unavailable Encounter Details Date Type Department Care Team Description 02/05/2020 Ancillary Procedure Radiology Library at Kerrie Coates [facility] COMPUTER NETWORKING INSTRUCTOR [facility] [address] [place] [phone] (Wo rk) Social History Tobacco Use Types Packs/Day Years Used Date Never Assessed Sex Assigned at Date Recorded Not on file documented as of this encounter Plan of Treatment Not on filedocumented as of this encounter Procedures Procedure Name Priority Date/Time Associated Diagnosis Comme nts FILM LIBRARY Routine 02/05/2020 12:00 AM Results for this STORAGE ONLY MAMMO EDT procedure are in the results section. documented in this encounter Results Film Library- Storage Only Mammo (02/05/2020 12:00 AM EDT) Specimen (Source) Anatomical Location Collection Method / Collectio n Time Received Time / Laterality Volume Narrative ESCOBAR - 02/17/2020 4:05 PM EDT This exam is auto-finalizing. It's purpo se is for storage only. Hanny Coates COMPUTER NETWORKING INSTRUCTOR IMG FILM LIBRARY ORDERABLES Performing Organization Address City/State/ZIP Code Phon e Number [place], [place] documented in this encounter Visit Diagnoses Not on filedocumented in this encounter Care Teams Deputy Bailiff Relationship Specialty Start Date End Date Unknown PCP - General 02/13/17 02/14/20 None documented as of this encounter
--- OUTSIDE RECORDS SUMMARY | 2022-02-23 01:36 | XMS_ITS | Encounter Summary ---
:1970 Author Organization [facility] Address [address] [place] [address] Care Team Providers Name Role Phone Unavailable Primary Care Provider Unavailable Encounter Details Date Type Department Care Team Description 02/24/2010 Results Only [facility] Liana Newberry, WOODWORK TEACHER Laboratory Services - [address] [place], [place] [address] [place] [id number] [place] [address] [phone] Social History Tobacco Use Types Packs/Day Years Used Date Never Assessed Sex Assigned at Date Recorded Not on file documented as of this encounter Plan of Treatment Not on filedocumented as of this encounter Procedures Procedure Name Priority Date/Time Associated Diagnosis Comme [facility] CYTOPATHOLOGY Routine 02/24/2010 0:00 EDT Results for this procedure are i n the results section . documented in this encounter Results CYTOPATHOLOGY (02/24/2010 0:00 EDT) Pathology Report: CYTOPATHOLOGY REPORT ? [facility] ? LAB Reports generated via electr onic interface contain original data; ? however they are lacking the format of the original report. ? Caution should be taken when reading/interpreting unformatted reports. ? Name: ? VIKTORIYA SIMMS ? Accession #: ? [id number] ? : ? 1970 (Age: 39) ??F ?Collect Date: ? 02/24/2010 ? Location: ? [facility] ? R eceive Date: ? 02/27/2010 ? Provider: PALMIRA L NEWBERRY WOODWORK TEACHER ? Copy to: ? Final Report ? SPECIMEN ADEQUACY ? Satisfactory for Eval uation ? - transformation zone compon ent present ? GENERAL CATEGORIZATION ? Negative for Intraepi thelial Lesion or Malignancy ? INTERPRETATION ? Reactive cellular jose nges associated with inflammation present (includes ?? repair). ? Last Menstural Period: 9/10/ 10 ? Previous Gynecologic Patholo gy: Yes: hx abnormal pap > 13 years ago, repeat pap was normal ? Specimen/Source: ??Pap Test, Cervix/Endocervix, ThinPrep Imaging System with ? manual evaluation ? Document reviewed and electr onically signed by: ? KIMBERLY SPARKS MD ? Report ??Date: 10/28/ 2010 15:35 ? HPV with Pap Test ? Date Ordered: ? 1 ? Status: ?? Signed Out ?Date Complete: ? 03/06/2010 ? By: ??System Interface ? Date Reported: ? 03/06/2010 ? Interpretation ? RESULT: Negative for HPV typ es 16, 18, 31, 33, 35, 39, 45, 51, 52, ? 56, 58, 59, and 68. ? Comments ? Document reviewed and electr onically signed by: ? System Interface ? Report date: 11//20 10 ? By the signature above, the attending physician certifies that he/she has ? personally conducted a gross and/or microscopic examination of the described ? specimens and rendered or co nfirmed the above diagnosis. ? End of Report ? Specimen Performing Organization Address City/State/ZIP Code Phon e Number [facility] [address] [place] [address] SERVICES [facility] [address] [place] [address] documented in this encounter Visit Diagnoses Not on filedocumented in this encounter
--- OUTSIDE RECORDS SUMMARY | 2022-02-23 01:36 | XMS_ITS | Clinical Summary ---
:1970 Author Organization [facility] Address [address] [place] [address] Care Team Providers Name Role Phone Ginny Palencai MEDICAL SALES SPECIALIST Primary Care Provider Social History Tobacco Use Types Packs/Day Years Used Date Never Assessed Sex Assigned at Date Recorded Not on file Plan of Treatment Health Maintenance Due Date Last Done Comments Hepatitis C Screen 1970 COVID-19 Vaccine (1) 1973 Care Teams Office Machinery Or Equipment Installer Relationship Specialty Start Date End Date Ginny Palencia, MEDICAL SALES SPECIALIST PCP - General 11/02/[address] [place] [id number]
--- OUTSIDE RECORDS SUMMARY | 2022-02-23 01:36 | XMS_ITS | Encounter Summary ---
:1970 Author Organization [facility] Address [address] [place] [address] Care Team Providers Name Role Phone Unavailable Primary Care Provider Unavailable Encounter Details Date Type Department Care Team Description 09/07/2014 Results Only [facility] Cheli Harper, MATERIALS SUPERVISOR [phone] [address],CR[place], [place] [address] (Wo rk) Social History Tobacco Use Types Packs/Day Years Used Date Never Assessed Sex Assigned at Date Recorded Not on file documented as of this encounter Plan of Treatment Not on filedocumented as of this encounter Procedures Procedure Name Priority Date/Time Associated Diagnosis Comme nts PAP TEST- RESULT Routine 09/07/2014 0:00 EDT Resu lts for this ONLY procedure are i n the results section. documented in this encounter Results PAP TEST- RESULT ONLY (09/07/2014 0:00 EDT) Pathology Report: CYTOPATHOLOGY REPORT [facility] Reports generated via electronic interface contain lisa ginal data; SERVICES however they are lacking the format of the original re port. Caution should be taken when reading/interpreting unfo rmatted reports. Name: ? VIKTORIYA SIMMS ? Accession #: ? [id number] ? : ? 1970 (Age: 43) ??F ?Collect Da te: ? 09/07/2014 ? Location: ? [facility] ? Receive Date: ? 015 ? Provider: CHELI HARPER MATERIALS SUPERVISOR Copy to: PALMIRA NEWBERRY HUMAN RESOURCES OPERATIONS DIRECTOR ? Final Report SPECIMEN ADEQUACY ? Satisfactory for Evaluation - transformation zone component present GENERAL CATEGORIZATION ? Epithelial Cell Abnormality INTERPRETATION ? Squamous Cell Abnormality - Atypical squamous c ells, undetermined significance (ASC-US). EDUCATIONAL NOTES/RECOMMENDATIONS ? [facility] recommends foll owing ASCCP's 2012 Updated Consensus Guidelines for the Management of Abnormal Cervical Cancer Screening T ests and Cancer Precursors (JLGTD, 2013; 17(5):S1-S27). ??Conse nsus guidelines are available online at www.asccp.org. Specimen/Source: ??Pap Test, Cervix/Endocervix, ThinPr ep Imaging System with manual evaluation Document reviewed and electronically signed by: ? ALBERTO RAYMOND MD [facility] ? Report ??Date: 09/23/2014 11:17 HPV with Pap Test ? Date Ordered: ? 09/23/2014 ? Status: ?? Signed Out ?Date Complete: ? 09/27/2014 ? By: ??S ystem Interface ? Date Reported: ? 09/27/2014 ? Interpretation RESULT: Negative for HPV. No E6 or E7 mRNA is detected from HPV types 16,18,31,3 3,35, 39,45,51,52,56,58,59,66, and 68 by rv mechanic media tono amplification. Comments Document reviewed and electronically signed by: ? System Interface ? Report date: 09/27/2014 By the signature above, the attending physician certif ies that he/she has personally conducted a gross and/or microscopic examin ation of the described specimens and rendered or confirmed the above diagnosi s. End of Report Specimen Performing Organization Address City/State/ZIP Code Phon e Number [facility] [address] [place] [address] SERVICES documented in this encounter Visit Diagnoses Not on filedocumented in this encounter
--- OUTSIDE RECORDS SUMMARY | 2022-02-23 01:36 | XMS_ITS | Clinical Summary ---
:1970 Author Organization [facility] [place] [address] Care Team Providers Name Role Phone Hanny Coates APRN Primary Care Provider Allergies Active Allergy Reactions Severity Noted Date Comments Tree Nut Medium CIS - Urticaria Medications Medication Sig Dispensed Refills Start Date End Date Status DOXEPIN HCL (DOXEPIN ORAL) 0 07/05/2009 Active Immunizations Name Administration Dates Next Due Influenza Vaccine, Whole 03/11/2007 Social History Tobacco Use Types Packs/Day Years Used Date Never Assessed Sex Assigned at Date Recorded Not on file Plan of Treatment Health Maintenance Due Date Last Done Comments Covid-19 Vaccine (#1) 06/12/1969 HIV screen 1986 Hepatitis C Screening 1986 Tdap adult 12/11/1987 Tetanus vaccine 12/11/1987 HPV test 1998 PAP Smear 1998 Breast Cancer Share Decision Needed 2008 Colonoscopy 2013 Breast Cancer screening 2018 Zoster vaccine (1 of 2) 2018 Influenza (Flu) vaccine (1 of 1 - Influenza standard 01/04/2022 03/11/2007 series) Insurance Payer Benefit Plan / Subscriber ID Effective Dates Phone Addre ss Type Group [employer] [place] [id number] 2020-Prese [address] [place] [address] Guarantor Name Account Type Relation to Date of Phone Bill ing Patient Address Larisa Simms Personal/Family Self 1970 [address] (Home) [place] [phone] [place] [address] (Work) Care Teams Invoice Coder Relationship Specialty Start Date End Date Hanny Coates APRN PCP - General Geriatric Medicine 02/15/20 [address] [place] [address]
--- OUTSIDE RECORDS SUMMARY | 2022-02-23 01:36 | XMS_ITS | Encounter Summary ---
:1970 Author Organization [facility] Address [address] [place] [address] Care Team Providers Name Role Phone Cheli Andrews RICKIE Primary Care Provider Encounter Details Date Type Department Care Team Description 10/28/2015 Results Only [facility]- Kimberly Coronado MD [phone] [address] [place], [place] [address] Social History Tobacco Use Types Packs/Day Years Used Date Never Assessed Sex Assigned at Date Recorded Not on file documented as of this encounter Plan of Treatment Not on filedocumented as of this encounter Procedures Procedure Name Priority Date/Time Associated Diagnosis Comme [facility] SURGICAL PATHOLOGY Routine 10/28/2015 9:37 EDT Re sults for this procedure are i n the results section. documented in this encounter Results SURGICAL PATHOLOGY (10/28/2015 9:37 EDT) Pathology Report: SURGICAL PATHOLOGY REPORT [facility] Reports generated via electronic interface contain lisa ginal data; LABORATORY however they are lacking the format of the original re port. SERVICES Caution should be taken when reading/interpreting unfo rmatted reports. Name: ? VIKTORIYA SIMMS ? Accession #: ? [id number] ? : ? 1970 (Age: 44 ) ??F ? Collect Date: ? 10/28/2015 ? Location: ? [facility] ? Receive Date: ? 6 ? Provider: KIMBERLY ABBOTT MD Copy to: [facility] ? 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 - ??Endometrium: ??- ??Proliferative endometrium. - ??Myometrium: ??- ??Extensive adenomyosis. - ??Serosa: ??- ??No specific pathologic features. - ??Fallopian tubes: ??- ??No specific pathologic features. Document reviewed and electronically signed by: JOSEPH MARSHALL MD Report ??Date: 11/04/2015 15:25 By the signature above, the attending physician certif ies that he/she has personally conducted a gross and/or microscopic examin ation of the described specimens and rendered or confirmed the above diagnosi s. Specimen(s) Received: Uterus, bilateral fallopian tubes Clinical History: Clinical diagnosis code: N92.0, N94.5, D25.9 Gross Description: ? Received in formalin labelled with proper patient identification (initials S, D) and uterus, bilateral fallopian tubes is a [place] rine corpus with a detached cervix and separate fimbriated segments of fallopian tubes. The uterus weighs 290 g and measures 8.0 cm from in ferior to fundus, 8.0 cm from cornu to cornu, and 7.0 cm anterior t o posterior. The serosa is unremarkable. The cervix is 4.0 cm in length. The ectocervix is 3.5 x 3.0 cm an d is covered by unremarkable mucosa. There are a few Nab othian cysts measuring up to 0.8 cm in greatest dimension. The uter ine cavity is 4.5 x 2.5 cm and is lined by thin red endometrium, which averages 0.2 cm in thickness. The m yometrium has a dense reticular appearance, suggestive of adenomyosis, and measures up to 3.7 cm in thickness. One tube measures 2.5 cm in length and 0.7 cm in diameter. The other tube is 4.0 cm in length and 0.6 cm in diameter. The shorter tube is inked blue for orientation purposes. Group Underwriter sections are submitted as follows: BLOCK HO 1-2- ??cervix 3- ??anterior endomyometrium 4-5- ??posterior endomyometrium, continuous section 6- ??longer tube, three pieces 7- ??shorter tube, three pieces Alicia BANKS 10/31/2015 2:29 PM End of Report Specimen Performing Organization Address City/State/ZIP Code Phon e Number [facility] [address] [place] [address] SERVICES documented in this encounter Visit Diagnoses Not on filedocumented in this encounter Care Teams Coremaker Machine Relationship Specialty Start Date End Date Cheli Andrews APRN PCP - General 09/28/14 11/01/15 [address] [address] documented as of this encounter
[2022-02-23 08:08] LABS: HCT 42.3 % (36.0-46.0); HGB 14.4 g/dL (11.2-15.7); MCH 30.6 pg (27.0-33.0); MCV 90 fL (80-95); MPV 9.2 fL (8.0-11.0); Platelet Count 248 10^3/uL (130-400); RDW 12.2 % (11.7-14.6); RDW-SD 40.5 fL; WBC 4.09 10^3/uL (4.4-10.8)
[2022-02-23 08:24] LABS: Hemoglobin A1C 5.8 % (<5.7)
[2022-02-23 08:42] LABS: Calculated LDL 159 mg/dL (<100); Cholesterol 254 mg/dL (<200); Glucose 102 mg/dL (74-106); HDL Cholesterol 68 mg/dL (40-60); Triglyceride 136 mg/dL (<150)
== END 2022-02-23 01:30 | disposition home or self-care (01) ==
PROVIDERS: PCP Nurse Practitioner Adult Health; Visit Provider Nurse Practitioner Adult Health
DX: D72.819 Decreased white blood cell count, unspecified (principal); E78.5 Hyperlipidemia, unspecified; R03.0 Elevated blood-pressure reading, without diagnosis of hypertension; Z83.3 Family history of diabetes mellitus
CPT/HCPCS: 36415; 80061; 82947; 85027; 83036

== ENCOUNTER → 2023-01-14 01:08 | Outpatient (CLI) | payer BC, SELFPAY ==
--- NOTE | 2023-01-14 08:00 | DI.MAMMO_ITS ---
Exam(s) MAMMO SCREENING EXAM: MAMMO SCREENING CLINICAL HISTORY: screening,z12.39. TECHNIQUE: Bilateral full field digital CC and MLO mammographic images were obtained with 3D tomosyn thesis and utilizing computer aided detection (CAD). COMPARISON: Prior mammograms were reviewed. FINDINGS: Fibroglandular tissue is again noted be moderately dense, this decreasing sensitivity mammogram for f inding hidden underlying lesions. No new findings in left breast. The right breast on the 3D MLO view there is an asymmetric density-possible nodule measuring 3 x 2.5 mm located 3 cm in from the nipple on the MLO view. Spot compression view and ultrasound recommended . There are no malignant-appearing microcalcification groups in this region or elsewhere in either [address]. There is no significant architectural distortion nor skin thickening-retraction. IMPRESSION: Dense bilateral fibroglandular tissue. No radiographic evidence of malignancy in left breast. Possible 3 mm right breast nodule as described above. Spot compression view and ultrasound recommend ed. BI-RADS Category 0 - Assessment Incomplete: Need additional imaging evaluation Breast Density - Category C - Heterogeneously dense Breast density Category C or D implies that the patient has dense breast tissue. Dense breast tissue can make it harder to find cancer on a mammogram. Dense breast tissue is also associated with an incr eased risk of breast cancer. This information about the result of the mammogram report was provided to the patient to raise their awareness. Use this report when you speak with the patient about their risks for breast cancer, which includes their family history. At that time, you may recommend additional screening tests (Ultrasoun d or MRI) as these tests may add significant information. A negative radiographic report should not delay biopsy if a dominant or clinically suspicious mass is present. Up to ten percent of cancers are not identified on mammography. A negative report may reinforce clinical impression. Adenosis and dense breasts may obscure an underlying neoplasm. False positive reports average 6 to 10%. Patient will receive a letter notifying them of these results.
== END ==
PROVIDERS: PCP Nurse Practitioner Adult Health; Visit Provider Nurse Practitioner Adult Health
DX: Z12.31 Encounter for screening mammogram for malignant neoplasm of breast (principal)
CPT/HCPCS: 77063; 77067

== ENCOUNTER → 2023-01-16 01:42 | Outpatient (CLI) | payer BC, SELFPAY ==
--- NOTE | 2023-01-16 | DI.US_ITS ---
Exam(s) MG MAMMO SCREEN CALL BACK UNI US BREAST RT COMPLETE EXAM: MG MAMMO SCREEN CALL BACK UNI-RIGHT AND COMPLETE RIGHT BREAST ULTRASOUND. CLINICAL HISTORY: F/U MAMMO, ? 3 MM RT NODULE,R92.8. TECHNIQUE: Unilateral spot mammographic images obtained with 3D tomosynthesisand utilizing computer aided detection (CAD). . Complete RIGHT breast Ultrasound was also performed, including all 4 quadrants, the retroareolar sherri on, and the ipsilateral axilla. COMPARISON: Prior mammograms were reviewed. This additional imaging was performed due to findings described on the recent screening mammogram of 01/14/2023. FINDINGS: DIAGNOSTIC MAMMOGRAM: Additional mammographic views performed todayrender this area less concerning. COMPLETE RIGHT BREAST ULTRASOUND: Ultrasound performed today reveals no evidence of solid or significant cystic lesions.. Scanning of the ipsilateral axilla reveals no significant adenopathy. IMPRESSION: 1. No radiographic evidence of malignancy in the right breast. 2. Negative complete right breast ultrasound Appropriate follow-up is to keep this patient on a yearly mammogram schedule, with earlier imaging i f a self detected breast change is noted.. The patient was informed of these findings and recommendations prior to leaving the department today. BI-RADS Category 2 - Benign Findings Breast Density - Category C - Heterogeneously dense Breast density Category C or D implies that the patient has dense breast tissue. Dense breast tissue can make it harder to find cancer on a mammogram. Dense breast tissue is also associated with an incr eased risk of breast cancer. This information about the result of the mammogram report was provided to the patient to raise their awareness. Use this report when you speak with the patient about their risks for breast cancer, which includes their family history. At that time, you may recommend additional screening tests (Ultrasoun d or MRI) as these tests may add significant information. A negative radiographic report should not delay biopsy if a dominant or clinically suspicious mass is present. Up to ten percent of cancers are not identified on mammography. A negative report may reinforce clinical impression. Adenosis and dense breasts may obscure an underlying neoplasm. False positive reports average 6 to 10%. Patient will receive a letter notifying them of these results.
== END ==
PROVIDERS: PCP Nurse Practitioner Adult Health; Visit Provider Nurse Practitioner Adult Health
DX: Z12.31 Encounter for screening mammogram for malignant neoplasm of breast (principal); R92.8 Other abnormal and inconclusive findings on diagnostic imaging of breast
CPT/HCPCS: 76642; 77063; 77067

== ENCOUNTER 2023-10-08 05:23 | Outpatient (CLI) | payer BC, SELFPAY ==
[2023-10-08 16:31] LABS: Anion Gap 7.9 mmol/L (3-11); BUN 10 mg/dL (7-18); CO2 29.1 mmol/L (21.0-32.0); CREATININE 0.8 mg/dL (0.55-1.02); Calcium 9.2 mg/dL (8.5-10.1); Calculated LDL 134 mg/dL (<100); Chloride 104 mmol/L (98-107); Cholesterol 260 mg/dL (<200); Glucose 109 mg/dL (74-106); HDL Cholesterol 61 mg/dL (40-60); Potassium 3.9 mmol/L (3.5-5.1); Sodium 141 mmol/L (136-145); Triglyceride 325 mg/dL (<150)
[2023-10-08 16:37] LABS: Hemoglobin A1C 5.8 % (<5.7)
== END 2023-10-08 05:24 | disposition home or self-care (01) ==
LOC: LBO 05:24
PROVIDERS: PCP Nurse Practitioner Adult Health; Visit Provider Nurse Practitioner Adult Health
DX: R73.03 Prediabetes (principal); Z83.3 Family history of diabetes mellitus; E78.5 Hyperlipidemia, unspecified
CPT/HCPCS: 36415; 80048; 80061; 83036

== ENCOUNTER 2024-02-07 00:24 | Outpatient (CLI) | payer BC, SELFPAY ==
--- NOTE | 2024-02-07 06:30 | DI.MAMMO_ITS ---
Exam(s) MAMMO SCREENING EXAM: MAMMO SCREENING CLINICAL HISTORY: screening,z12.39 TECHNIQUE: Mammograms were interpreted according to the usual protocol including computer analysis w [employer] CAD system, tomosynthesis and C-view imaging. COMPARISON: 2019 through 2022 FINDINGS: The breasts are composed of heterogeneously dense fibroglandular densities, Breast Density category C . No suspicious masses or suspicious microcalcifications are seen. No skin thickening or abnormal axillary lymph nodes are seen. There has been no significant change from prior exams. IMPRESSION: BI-RADS Category 1, Negative mammogram. Yearly screening mammography is recommended. Breast Density Category C, heterogeneously Dense. The mammogram demonstrates the patient's breast tissue is dense. Dense breast tissue is very common a nd is not abnormal but dense breast tissue can make it harder to find cancer on a mammogram. Also, de nse breast tissue may increase breast cancer risk. This information about the result of the mammogram report was provided to the patient to raise their awareness. Use this report when you speak with the patient about their risks for breast cancer, which includes their family history. At that time, you may recommend additional screening tests (Ultrasound or MRI) as they might be useful based on their r isk. A negative radiographic report should not delay biopsy if a dominant or clinically suspicious mass is present. Up to ten percent of cancers are not identified on mammography. A negative report may reinforce clinical impression. Adenosis and dense breasts may obscure an underlying neoplasm. False positive reports average 6 to 10%.
== END 2024-02-07 00:44 ==
LOC: DI 00:24
PROVIDERS: PCP Nurse Practitioner Adult Health; Visit Provider Nurse Practitioner Adult Health
DX: Z12.31 Encounter for screening mammogram for malignant neoplasm of breast (principal)
CPT/HCPCS: 77063; 77067

== ENCOUNTER 2024-03-09 03:09 | Outpatient (CLI) | payer BC, SELFPAY ==
[2024-03-09 16:43] LABS: Vitamin D 25 Total 25.4 ng/mL (30-100)
[2024-03-09 16:48] LABS: TSH (W/Ref FT4) 1.31 uIU/mL (0.36-3.74); Vitamin B12 176 pg/mL (193-986)
[2024-03-10 18:36] LABS: Estradiol <12 pg/mL (See Note)
[2024-03-10 19:12] LABS: FSH 127.4 mIU/mL (See Note); Prolactin 5.4 ng/mL (See Note)
[2024-03-13 11:52] LABS: Thiamine (Vitamin B1), WB 112 nmol/L (70-180)
== END 2024-03-09 03:10 | disposition home or self-care (01) ==
LOC: LBO 03:10
PROVIDERS: PCP Nurse Practitioner Adult Health; Referring Provider Nurse Practitioner Adult Health; Visit Provider Nurse Practitioner Adult Health
DX: G47.9 Sleep disorder, unspecified (principal); F41.9 Anxiety disorder, unspecified; R23.2 Flushing; Z71.3 Dietary counseling and surveillance; Z71.9 Counseling, unspecified; Z56.6 Other physical and mental strain related to work
CPT/HCPCS: 36415; 82306; 82607; 82670; 82746; 83001; 84146; 84425; 84443